=== PATIENT | male | born 1970 | race Caucasian/White ===

== ENCOUNTER 2016-08-11 10:52 | Emergency (ER) | payer OTHER ==
--- NOTE | ~2016-08-11 | ER ---
PATIENT'S NAME: ARNEL WHITE [facility] AGE: 45 Y [address] ROOM: [place] [address] LOCATION: [facility] ADMIT DATE: 08/11/2016 ER/Outpatient Report DISCHARGE DATE: 08/11/2016 FAMILY PHYSICIAN: Physician, Unknown ATTENDING PHYSICIAN: Naomi Long Time of Arrival: 1052 hours. Time Seen: 1105 hours. IDENTIFICATION: A 45-year-old male. CHIEF COMPLAINT: Right-sided facial laceration. HISTORY OF PRESENT ILLNESS: The patient is a 45-year-old male who had a garage door come down on the right side of his head just lateral to his eye. He does complain of a little bit of blurred vision. He is a little bit fuzzy, has a headache and nausea since it happened. No loss of consciousness. PAST MEDICAL HISTORY: ALLERGIES: PENICILLIN AND ANCEF. CURRENT MEDICATIONS: Denies. Tetanus is current within 10 years. MEDICAL PROBLEMS: Denies. PRIOR SURGERIES: He has had 2 shoulder surgeries, ulnar nerve, tonsillectomy, cholecystectomy, appendectomy, knee arthroscopy, and carpal tunnel surgery. SOCIAL HISTORY: The patient lives in [place], [place]. He works out of [place]. He is a supervisor delivery department. Tobacco use, 3/4 pack per day for 15 years. Alcohol use, occasional. Drug use, denies. REVIEW OF SYSTEMS: He is complaining of some neck pain. No numbness or tingling. All systems PATIENT'S NAME: ARNEL WHITE [facility] AGE: 45 Y [address] ROOM: [place] [address] LOCATION: [facility] ADMIT DATE: 08/11/2016 ER/Outpatient Report DISCHARGE DATE: 08/11/2016 FAMILY PHYSICIAN: Physician, Unknown ATTENDING PHYSICIAN: Naomi Long reviewed and negative other than what is noted in the HPI. FAMILY HISTORY: No pertinent family history. PHYSICAL EXAMINATION: VITAL SIGNS: Weight 89 kg, blood pressure 133/83, pulse 69, respirations 20, temperature 97.1, and saturations 97%. HEENT: Visual acuity: Right eye 20/20, left eye 20/20, both eyes 20/20 uncorrected. He does not wear glasses or contacts. Head: Normocephalic. He does have an area of ecchymosis just lateral to his right eye. He has a 1-cm laceration, it does gape if you pull it apart. He had a butterfly bandage on that just lateral to his right eye. Eyes: Pupils equal and reactive to light and accommodation. Extraocular movements intact. Conjunctivae mildly injected on the right. Nose: Mucosa pink. No lesions. Mouth: No lesions. Pharynx benign. NECK: Minimal tenderness to palpation of his neck, more to the right side. LUNGS: Clear to auscultation. Breath sounds are equal. HEART: Regular rate and rhythm. ABDOMEN: Soft, nondistended, and nontender. SKIN: [place], warm, and dry. No lesions or rashes noted. NEURO: The patient is alert and oriented x4. Cranial nerves 2 through 12 grossly intact. Motor strength 5/5 throughout. Sensation is intact to light touch. LABORATORY DATA: Sodium 142, potassium 4.7, chloride 109, CO2 26, BUN 12, creatinine 1.0, and blood sugar 102. Liver enzymes normal. Alcohol level less than 0.010. Hemoglobin 13.6, hematocrit 41.4, platelets 323, and white count 8.3 with a normal differential. INR is 0.9. Head CT without contrast, no acute findings per Radiology. CT scan of the cervical spine. No acute findings. He does have [id number] canal stenosis of C3-4 and C4-5, mild degenerative disk disease. IMPRESSION AND PLAN: 1. 1-cm laceration lateral and superior to right eye. The area was anesthetized and draped in a sterile fashion. 1% Xylocaine without epinephrine was used for local anesthesia. Simple interrupted sutures were placed without difficulty. The patient tolerated the procedure times well. Two simple interrupted sutures using 6-0 Ethilon. Wound care instructions were provided. Tetanus is current. 2. Possible loss of consciousness, headache, and nausea. Head CT negative. Plan: Head injury precautions. Tylenol or Advil as needed. Ice as needed. Follow up if no improvement or symptoms worsen. The patient understands and agrees and all questions have been answered. PATIENT'S NAME: ARNEL WHITE [facility] AGE: 45 Y [address] ROOM: [place] [address] LOCATION: [facility] ADMIT DATE: 08/11/2016 ER/Outpatient Report DISCHARGE DATE: 08/11/2016 FAMILY PHYSICIAN: Physician, Erika ATTENDING PHYSICIAN: Naomi Long MD JOHNNY GUZMÁN/leighton /[id number] d: 08/11/[id number] t: 08/13/16 0722, OUTPATIENT REPORT
[2016-08-11 11:31] LABS: BASOPHIL # 0.1 K/uL (0.0-0.2); BASOPHIL % 0.6 %; EOSINOPHIL # 0.2 K/uL (0.0-0.5); EOSINOPHIL % 2.4 %; HEMATOCRIT 41.4 % (37.0-53.0); HEMOGLOBIN 13.6 g/dL (12.0-17.0); IMMATURE GRANULOCYTE % 0.4 %; LYMPHOCYTE # 1.8 K/uL (0.8-4.0); LYMPHOCYTE % 21.2 %; MCH 30.2 pg (27.0-34.0); MCHC 32.9 gm/dL (32.0-36.5); MONOCYTE # 0.5 K/uL (0.0-1.0); MPV 9.3 fl (9.4-12.4); NEUTROPHIL # (ANC) 5.8 K/uL (1.4-9.0); NEUTROPHIL % 69.4 %; NRBC % 0 /100WBC (0-0.00); PLATELET COUNT 323 K/uL (150-450); WBC 8.3 K/uL (4.0-11.0)
[2016-08-11 11:39] LABS: INR - (THERAPEUTIC) 0.9 (0.9-1.1); PROTIME 9.4 SECONDS (9.6-11.1); PTT 30 SECONDS (25-32)
[2016-08-11 11:47] LABS: ALK PHOS 89 IU/L (33-138); ALT 28 IU/L (12-78); ANION GAP 12.7 (10.0-19.0); AST 17 IU/L (10-40); BLOOD UREA NITROGEN 12 mg/dL (6-24); CALCIUM 8.9 mg/dL (8.5-10.5); CHLORIDE 109 mMol/L (96-110); CO2 26 mMol/L (22-32); ESTIMATED GFR (MDRD EQUATION) > 60; POTASSIUM 4.7 mMol/L (3.7-5.1); SODIUM 143 mMol/L (135-145); TOTAL BILIRUBIN 0.3 mg/dL (0.0-1.5)
== END 2016-08-11 12:20 | disposition disaster alternative care site (69) ==
LOC: GACC 10:52
PROVIDERS: Family Medicine
DX: S01.111A Laceration without foreign body of right eyelid and periocular area, initial encounter (principal); Z88.0 Allergy status to penicillin; Z88.8 Allergy status to other drugs, medicaments and biological substances; Z90.49 Acquired absence of other specified parts of digestive tract; Z90.89 Acquired absence of other organs; W22.8XXA Striking against or struck by other objects, initial encounter; Y92.59 Other trade areas as the place of occurrence of the external cause
CPT/HCPCS: G0480